=== PATIENT | female | born 1995 | race Two or more races ===

== ENCOUNTER 2025-03-09 21:44 | Emergency (ER) | payer OTHER ==
[~2025-03-09] VITALS: Ht 165.1 cm; Wt 63.5 kg
[2025-03-10 00:07] LABS: BASO % 0.6 % (0.1-1.2); EOS # 0.33 (0.04-0.54); EOS % 2.6 % (0.7-7.0); LYMPH # 2.53 (1.18-3.74); LYMPH % 19.9 % (19.3-53.1); MEAN PLATELET VOLUME 9.30 fl (9.4-12.4); MONO # 1.34 (0.24-0.82); MONO % 10.5 % (4.7-12.5); NEUT # 8.38 (1.56-6.13); NEUT % 65.9 % (34.0-71.1); RED CELL DISTRIBUTION WIDTH 15.1 % (11.6-14.4)
[2025-03-10 01:41] LABS: ALT/SGPT 19 U/L (12-78); AST/SGOT 10 U/L (15-37); BILIRUBIN TOTAL 0.29 mg/dL (0.3-1.2); BUN CREA RATIO 12 (7.0-25.0); CREATININE SERUM 0.83 mg/dL (0.55-1.02); GFR 81.86; GLOBULINA 3.9 G/DL (2.4-3.5); GLUCOSE FASTING 96 mg/dL (65-100)
== END 2025-03-10 03:42 | disposition home or self-care (01) ==
LOC: ER 21:44
PROVIDERS: General Practice
DX: R00.2 Palpitations (principal); R07.9 Chest pain, unspecified; F41.9 Anxiety disorder, unspecified